=== PATIENT | male | born 1970 | race Caucasian/White ===

== ENCOUNTER 2022-04-12 15:13 | Emergency (ER) | payer BC ==
[2022-04-12] MEDS ORDERED: Acetaminophen/HYDROcodone 325-5 MG Tab PO ONE (15:53)
== END 2022-04-12 18:31 | disposition home or self-care (01) ==
LOC: JP.ED 15:13
DX: S82.52XA Displaced fracture of medial malleolus of left tibia, initial encounter for closed fracture (principal); W11.XXXA Fall on and from ladder, initial encounter
CPT/HCPCS: 29515; 73590; 73610; 99283; A9270